=== PATIENT | female | born 2000 | race Caucasian/White ===

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

== ENCOUNTER 2021-06-02 15:32 | Emergency (ER) | payer OTHER, SELFPAY ==
[2021-06-02] VITALS (15 sets, daily range): BP systolic 113–141; BP diastolic 72–92; PULSE 81; RESP 16; TEMP 36.6; O2SAT 97–100
--- NOTE | ~2021-06-02 | US_ITS ---
EXAMINATION: US OB <= 14 weeks fetus DATE: 06/02/2021 16:21 INDICATION: Miscarriage. TECHNIQUE: Real-time transabdominal pelvic ultrasound was performed. COMPARISON: None. FINDINGS: The uterus measures 8.8 x 6.2 x 5.2 cm. There is an intrauterine gestational sac. A yolk sac is ident ified. The crown rump length measures 7 mm, which correlates with an estimated gestational age of 6 weeks and 4 day(s) (+/-) 4 day(s). heart motion is identified measuring 119 beats per min lance (bpm) by M-mode Doppler. There is a small subchorionic hematoma. The ovaries are not visualized. There is no free fluid in the pelvis. IMPRESSION: 1. Single live intrauterine gestation with estimated date of delivery of 01/22/2022. 2. Small subchorionic hematoma. Reviewed, dictated and finalized at location E. IMPRESSION: 1. Single live intrauterine gestation with estimated date of delivery of 01/22. 2. Small subchorionic hematoma.
--- NOTE | 2021-06-02 16:10 | PC.NURSE ---
Patient off unit to imaging for ultrasound.
--- NOTE | 2021-06-02 16:23 | ED.FEMALEGU ---
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 Patient reports a lot of mental stress lately. Patient also complaining of lower abdominal cramps associated with nausea. She denies any fever, chills, vomiting. History of seizure, she vapes, does not drink, uses marijuana daily. Related Data Home Medications Medication Instructions Recorded Confirmed PNV cmb#95-ferrous fumarate-FA 1 tablet PO DAILY 07/06/20 07/06/20 [] levetiracetam [Keppra] 750 mg PO BID 07/06/20 07/06/20 Allergies Allergy/AdvReac Type Severity Reaction Status Date / Time No Known Allergies Allergy Verified 06/02/21 16:41 Review of Systems Review of Systems: CONSTITUTIONAL: Denies fever, chills, or sweats. EYES: Denies visual changes, redness, or discharge. ENT: Denies rhinorrhea, congestion, sore throat, or otalgia. CARDIOVASCULAR: Denies chest pain, palpitations, or edema. RESPIRATORY: Denies cough or dyspnea. GASTROINTESTINAL: Denies abdominal pain, nausea, vomiting, or diarrhea. GENITOURINARY: Denies dysuria or hematuria. SKIN: Denies rash or itching. MUSCULOSKELETAL: Denies back pain, joint pain, or myalgia. NEUROLOGIC: Denies headache, numbness, or weakness. PSYCHIATRIC: Denies anxiety or depression. 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 Family History Family History Father Hypertension Grandparent Hypertension Social History Social History Smoking status: Current every day smoker Second hand tobacco smoke exposure: Yes Substance use: never Gender identity (if verbalized by the patient): Female Spiritual care concerns: No Exam Narrative: General appearance: Well-developed, well-nourished Skin: Normal color Head: Normocephalic, nontraumatic Eyes: Clear conjunctiva ENT: Oropharynx normal, ears normal, nose normal Neck: Supple, nontender Chest and respiratory: Airway patent, no respiratory distress, no accessory muscle use Heart: Regular rate/rhythm Abdomen: Soft, nontender, no organomegaly, quiet bowel sounds Vascular: Normal peripheral pulses, normal capillary refill. Musculoskeletal: Normal range of motion, nontender back Neurologic: Alert and oriented ?3, MANUFACTURING ENGINEERING TECHNICIAN is normal as tested, no gross motor deficit : External Female Exam: normal external appearance and Abnormal introitus Speculum Exam - Vagina: normal appearance of the vagina and Abnormal introitus Speculum Exam - Cervix: normal appearance of the cervix and Other cervical findings present (Dark brownish thin fluid around the cervix, no active bleeding) Course Course Emergency Course: Stable Threatened is my diagnosis, work-up today did not show any other reason to explain patient condition. Vital Signs Vital signs: Vital Signs Temperature 36.6 C 06/02/21 15:36 Pulse Rate 81 06/02/21 15:36 Respiratory Rate 16 06/02/21 15:36 Blood Pressure 141/92 H 06/02/21 15:36 Pulse Oximetry 100 06/02/21 15:36 Temperature 36.6 C 06/02/21 15:36 Pulse Rate 81 06/02/21 15:36 Respiratory Rate 16 06/02/21 15:36
[2021-06-02] MEDS: SODIUM CHLORIDE 0.9% IV 1,000 ML 999 ML IV CONT (16:31)
[2021-06-02] MEDS: MORPHINE SULFATE (*CRX) 4 MG/ML INJ IV PUSH (16:32)
[2021-06-02] MEDS: ONDANSETRON INJ 4 MG/2 ML VIAL IV PUSH (16:32)
[2021-06-02 16:38] LABS: Basophils Absolute Auto 0.1 K/mm3 (0.0-0.1); Basophils Percent Auto 0.8 % (0.2-1.2); Eosinophils Absolute Auto 0.2 K/mm3 (0-0.3); Eosinophils Percent Auto 3.7 % (0-4.4); Hematocrit 36.8 % (37.0-47.0); Hemoglobin 13.1 g/dL (12.0-15.0); Immature Granulocyte Absolute 0.01 K/mm3 (0.00-0.031); Immature Granulocyte Percent A 0.2 % (0-0.5); Lymphocytes Absolute Auto 1.26 K/mm3 (0.9-3.2); Lymphocytes Percent Auto 20.4 % (18.3-44.2); Mean Corpuscular HGB Conc 35.6 g/dl (32-36); Mean Corpuscular Hemoglobin 32.3 pg (26-34); Mean Corpuscular Volume 90.9 fl (80-100); Mean Platelet Volume 9.7 fl (7.4-10.4); Monocytes Absolute Auto 0.4 K/mm3 (0.1-0.6); Monocytes Percent Auto 5.7 % (2.6-8.5); Neutrophils Absolute Auto 4.3 K/mm3 (1.3-6.7); Neutrophils Percent Auto 69.2 % (45.5-73.1); Platelet Count Result 280 k/mm3 (150-375); Red Blood Count 4.05 M/mm3 (4.2-5.4); Red Cell Distribution Width 12.1 % (11.5-14.5); White Blood Count 6.2 K/mm3 (4.5-10.0)
--- NOTE | 2021-06-02 16:41 | PC.NURSE ---
Pelvic tray set up at bedside.
== END 2021-06-02 17:31 | disposition home or self-care (01) ==
PROVIDERS: Emergency Provider Emergency Medicine
DX: O20.0 Threatened abortion (principal); O99.351 Diseases of the nervous system complicating pregnancy, first trimester; G40.909 Epilepsy, unspecified, not intractable, without status epilepticus; O99.331 Smoking (tobacco) complicating pregnancy, first trimester; F17.290 Nicotine dependence, other tobacco product, uncomplicated; Z3A.01 Less than 8 weeks gestation of pregnancy
CPT/HCPCS: 36415; 76801; 84702; 85025; 85461; 96361; 96374; 96375; 99284; J2270; J2405; J7030